=== PATIENT | female | born 1955 | race Caucasian/White ===

== ENCOUNTER → 2016-11-16 | Outpatient (CLI) | payer MEDICAID, OTHER | LOC: CIMAGING 11:04 | DX: Z12.31 Encounter for screening mammogram for malignant neoplasm of breast (principal) | CPT/HCPCS: G0202 ==

== ENCOUNTER 2017-01-31 01:25 | Inpatient (IN) | payer MEDICAID ==
--- NOTE | 2017-01-31 01:53 | EDPHY ---
H & P Stated Complaint: abd pain HPI/ROS: Chief Complaint: Abdominal pain, nausea HPI: 61-year-old woman with a history of prior small-bowel obstruction secondary to multiple abdominal surgeries started having abdominal pain about 2 hours ago consistent with prior bowel obstructions. She states she has significant pain primarily in the left side feeling bloated and is having nausea. No diarrhea. Last bowel movement was 2 E days ago which is unusual for her. No fevers or chills. No chest pain shortness of breath. Pain is about a 8/10. It is constant. There is no aggravating or alleviating factors. ROS: 10 point Review of Systems is negative except as noted in the HPI. PMH: Hypertension, Hyperlipidemia, Peripheral neuropathy Anxiety Social History: No smoking, no alcohol, no recreational drug use Family History: non-contributory Physical Exam: Gen: Awake, Alert, No Distress HEENT: Nose: no rhinorrhea Eyes: PERRLA, EOMI Mouth: Moist mucosa Neck: Supple, no JVD Chest: nontender, lungs clear to auscultation Heart: S1, S2 normal, no murmur Abd: Distended, diffuse tenderness, worse on the left, voluntary guarding Back: no CVA tenderness, no midline tenderness Ext: no edema, non-tender Skin: no rash Neuro: CN II-XII intact, Sensation grossly intact, Strength 5/5 in bilateral upper and lower extremities - Personal History Current Tetanus/Diphtheria Vaccine: Unsure Current Tetanus Diphtheria and Acellular Pertussis (TDAP): Unsure - Medical/Surgical History Hx Asthma: No Hx Chronic Respiratory Disease: No Hx Diabetes: No Hx Cardiac Disease: Yes Hx Renal Disease: No Hx Cirrhosis: No Hx Alcoholism: No Hx HIV/AIDS: No Hx Splenectomy or Spleen Trauma: No Other PMH: Thyroid. cholesterol. Hyst with nicked bowel resulting in colostomy and further surgeries. tonsils. appy - Social History Smoking Status: Never smoked Constitutional: Initial Vital Signs Temperature (C) 37 C 01/31/17 01:35 Heart Rate 75 01/31/17 01:35 Respiratory Rate 18 01/31/17 01:35 Blood Pressure 73/46 L 01/31/17 01:35 O2 Sat (%) 94 01/31/17 01:35 O2 Delivery Mode Room Air Allergies/Adverse Reactions: oxycodone Allergy (Verified 01/31/17 01:32) Vomiting Home Medications: Medication Instructions Recorded Atenolol [Tenormin 50 mg (*)] 50 mg PO BID 02/03/16 Estradiol [Estrace Vaginal (*)] 1 gm VG HS PRN 02/03/16 Gabapentin [Neurontin 300 MG (*)] 300 mg PO TID 02/03/16 Levothyroxine [Synthroid 75 mcg 75 mcg PO DAILY06 02/03/16 (*)] Lisinopril [Zestril 20 mg (*)] 20 mg PO BID 02/03/16 Multivitamins [Multivitamin (*)] 1 each PO DAILY 02/03/16 [employer] Fatty Acids [Fish Oil 1000 1,000 mg PO DAILY 02/03/16 mg (*)] Simvastatin 40 mg PO DAILY@1800 02/03/16 Thiamine HCl 100 mg PO DAILY 02/03/16 Atenolol [Tenormin 50 mg (*)] 50 mg PO BID #0 tab 02/05/16 Gabapentin [Neurontin 300 MG (*)] 300 mg PO TID #0 cap 02/05/16 Medical Decision Making - Diagnostics Imaging Results: CT scan interpreted by Dr. Fernando, confirms small-bowel obstruction of moderate to severe, transition in the left lower quadrant. Imaging: Discussed imaging studies w/ transportation officer Radiologist ED Course/Re-evaluation: Patient is a confirmed small-bowel obstruction CT scan. I have discussed with Dr. Herron, general surgery. He will admit to his service for further care. - Data Points Laboratory Results: Laboratory Results 01/31/17 01:45 01/31/17 01:45 01/31/17 01/31/17 01:45 01:45 WBC 10.44 10^3/uL H 10^3/uL (3.80-9.50) RBC 4.35 10^6/uL 10^6/uL (4.18-5.33) Hgb 13.6 g/dL g/dL (12.6-16.3) Hct 41.6 % % (38.0-47.0) MCV 95.6 fL fL (81.5-99.8) MCH 31.3 pg pg (27.9-34.1) MCHC 32.7 g/dL g/dL (32.4-36.7) RDW 13.7 % % (11.5-15.2) Plt Count 230 10^3/uL 10^3/uL (150-400) MPV 10.3 fL fL (8.7-11.7) Neut % (Auto) 61.4 % % (39.3-74.2) Lymph % (Auto) 29.1 % % (15.0-45.0) [place] % (Auto) 7.4 % % (4.5-13.0) Eos % (Auto) 0.9 % % (0.6-7.6) Baso % (Auto) 0.7 % % (0.3-1.7) Nucleat RBC Rel Count 0.0 % % (0.0-0.2) Absolute Neuts (auto) 6.42 10^3/uL 10^3/uL (1.70-6.50) Absolute Lymphs (auto) 3.04 10^3/uL H 10^3/uL (1.00-3.00) Absolute Monos (auto) 0.77 10^3/uL 10^3/uL (0.30-0.80) Absolute Eos (auto) 0.09 10^3/uL 10^3/uL (0.03-0.40) Absolute Basos (auto) 0.07 10^3/uL 10^3/uL (0.02-0.10) Absolute Nucleated RBC 0.00 10^3/uL 10^3/uL (0-0.01) Immature Gran % 0.5 % % (0.0-1.1) Immature Gran # 0.05 10^3/uL 10^3/uL (0.00-0.10) Sodium 143 mEq/L mEq/L (134-144) Potassium 3.3 mEq/L L mEq/L (3.5-5.2) Chloride 103 mEq/L mEq/L (97-110) Carbon Dioxide 24 mEq/l mEq/l (22-31) Anion Gap 16 mEq/L mEq/L (8-16) BUN 32 mg/dL H mg/dL (7-23) Creatinine 1.4 mg/dL H mg/dL (0.6-1.0) Estimated GFR 38 Glucose 99 mg/dL mg/dL (70-100) Calcium 9.6 mg/dL mg/dL (8.5-10.4) Total Bilirubin 0.6 mg/dL mg/dL (0.1-1.4) Conjugated Bilirubin 0.4 mg/dL mg/dL (0.0-0.5) Unconjugated Bilirubin 0.2 mg/dL mg/dL (0.0-1.1) AST 48 IU/L H IU/L (14-46) ALT 42 IU/L IU/L (9-52) Alkaline Phosphatase 60 IU/L IU/L (38-126) Total Protein 7.0 g/dL g/dL (6.3-8.2) Albumin 4.3 g/dL g/dL (3.5-5.0) Lipase 307.0 IU/L H IU/L (23-300) Medications Given: Discontinued Medications Hydromorphone HCl (Dilaudid) 0.5 mg IVP EDNOW ONE Stop: 01/31/17 01:57 Last Admin: 01/31/17 02:10 Dose: 0.5 mg Hydromorphone HCl (Dilaudid) 0.5 mg IVP EDNOW ONE Stop: 01/31/17 03:02 Last Admin: 01/31/17 03:16 Dose: 0.5 mg Sodium Chloride (Ns) 1,000 mls @ 0 mls/hr IV ONCE ONE PRN Reason: Wide Open Stop: 01/31/17 01:56 Last Admin: 01/31/17 02:10 Dose: 1,000 mls Ondansetron HCl (Zofran) 4 mg IVP EDNOW ONE Stop: 01/31/17 01:56 Last Admin: 01/31/17 02:10 Dose: 4 mg Departure - Departure Disposition: [facility] Inpatient Acute Clinical Impression: SBO (small bowel obstruction) Condition: Fair Referrals: Arminda Vanegas MD [Primary Care Provider] - As per Instructions
[2017-01-31] MEDS ORDERED: ONDANSETRON 4 MG/2 ML VIAL ONE (01:54)
[2017-01-31] MEDS ORDERED: ONDANSETRON 4 MG/2 ML VIAL IVP ONE (01:55)
[2017-01-31] MEDS ORDERED: HYDROmorphONE/DILAUDID 1 MG/ML SYR ONE (01:55)
[2017-01-31] MEDS ORDERED: NS 1,000 ML IV ONE (01:55)
[2017-01-31] MEDS ORDERED: HYDROmorphONE/DILAUDID 1 MG/ML SYR IVP ONE ×2 (01:56→03:01)
[2017-01-31] MEDS ORDERED: IOPAMIDOL (ISOVUE-300) 100 ML BTL ONE (01:59)
[2017-01-31 02:00] LABS: % IMMATURE GRANULYOCYTES 0.5 % (0.0-1.1); ABSOLUTE IMMATURE GRANULOCYTES 0.05 10^3/uL (0.00-0.10); ADD DIFF? NO; ADD MORPH? NO; ADD SCAN? NO; ATYPICAL LYMPHOCYTE FLAG 0 (0-99); FRAGMENT RBC FLAG 0 (0-99); HEMATOCRIT 41.6 % (38.0-47.0); HEMOGLOBIN 13.6 g/dL (12.6-16.3); LEFT SHIFT FLG 0 (0-99); LIPEMIA HEMOLYSIS FLAG 80 (0-99); MEAN CELL HEMOGLOBIN 31.3 pg (27.9-34.1); MEAN CELL HEMOGLOBIN CONCENTR. 32.7 g/dL (32.4-36.7); MEAN CELL VOLUME 95.6 fL (81.5-99.8); MEAN PLATELET VOLUME 10.3 fL (8.7-11.7); PLATELET CLUMPS FLAG 0 (0-99); PLATELET COUNT 230 10^3/uL (150-400); RED BLOOD CELL COUNT 4.35 10^6/uL (4.18-5.33); RED CELL DISTRIBUTION WIDTH 13.7 % (11.5-15.2)
[2017-01-31 02:07] LABS: ALANINE AMINOTRANSFERASE 42 IU/L (9-52); ALBUMIN 4.3 g/dL (3.5-5.0); ALKALINE PHOSPHATASE 60 IU/L (38-126); ANION GAP 16 mEq/L (8-16); ASPARTATE AMINOTRANSFERASE 48 IU/L (14-46); BILIRUBIN,TOTAL 0.6 mg/dL (0.1-1.4); BILIRUBIN-CONJUGATED 0.4 mg/dL (0.0-0.5); BILIRUBIN-UNCONJUGATED 0.2 mg/dL (0.0-1.1); CALCIUM 9.6 mg/dL (8.5-10.4); CARBON DIOXIDE 24 mEq/l (22-31); CHLORIDE 103 mEq/L (97-110); CREATININE 1.4 mg/dL (0.6-1.0); GLOMERULAR FILTRATION RATE 38; GLUCOSE 99 mg/dL (70-100); POTASSIUM 3.3 mEq/L (3.5-5.2); SODIUM 143 mEq/L (134-144)
[2017-01-31] MEDS ORDERED: LIDOCAINE 2% JELLY 5 ML TUBE ONE (03:19)
[2017-01-31] MEDS ORDERED: ONDANSETRON DISINTEGRATING 4 MG TAB PO PRN (04:12)
[2017-01-31] MEDS ORDERED: LR 1,000 ML IV SCH (04:30)
--- NOTE | 2017-01-31 04:48 | GHP ---
[f rep st] HISTORY AND PHYSICAL DATE OF ADMISSION: 01/31/2017 CHIEF COMPLAINT: Abdominal pain. Absence of flatus. PRESENT ILLNESS: A 61-year-old female with a long surgical history and multiple previous small batsheva l obstructions. She had a hysterectomy in the past, and then developed an ovarian cyst. This was a pproached in approximately 2004. Apparently, there was a bowel injury, which led to multiple proced ures including a temporary colostomy, several attempts at colostomy reversal, which failed, ultimate ly succeeding, but required multiple hospitalizations, multiple operations over a long period. The majority of these reparative surgeries were done by Dr. Jus Crowell. Since that time, she has had several small bowel obstructions, which resolved with NG suction. She currently has a CT scan showing a small bowel obstruction with a transition zone in the left lower q uadrant. She has not had a stool for 2 days. ALLERGIES: None. CURRENT MEDICATIONS: Atenolol, lisinopril, gabapentin. SOCIAL HISTORY: Nonsmoker, drinks vodka on a daily basis. , [place]. PHYSICAL EXAM: GENERAL: Pleasant, moderately obese female in minimal distress. An NG tube has jus t been placed, although nothing is coming out of it. A KUB will be obtained to document placement. HEENT: GILMA, EOMI, sclerae nonicteric. Pharynx clear. NECK: Supple without adenopathy. LUNGS: Clear. HEART: Normal S1, S2 without murmur. ABDOMEN: Soft. No guarding. No masses. A small h ernia is suggested in the anterior midline just above the umbilicus. This is noted on CT scan as we ll. There is only notice of coughing in a focused exam. LABORATORY EXAMS: Include a white blood count of 10.4, potassium 3.3, lipase 307. ASSESSMENT AND PLAN: Patient with complicated surgical history, multiple midline operations, a smal l hernia noted on CT, although does not seem to be the site of obstruction. PLAN: NG suction, bowel rest, evaluation for progress. Hopefully she will not need a laparotomy du ring this admission, it is certainly possible. /[id number]/MODL
[2017-01-31] MEDS: HEPARIN 5,000 UNIT/0.5 ML SYR SC SCH ×3 (05:47→20:19)
--- NOTE | 2017-01-31 13:10 | SOAPPROG ---
SOAP Progress Note Assessment/Plan: Assessment:feeling much better. flatus and bm earlier today. no further crampy pain. NG thin gastric. PSBO - clinically improved. will repeat KUB today. Plan: 01/31/17 13:08 Objective: Vital Signs Temp Pulse Resp BP Pulse Ox 36.2 C 73 16 156/95 H 94 01/31/17 12:00 01/31/17 12:00 01/31/17 12:00 01/31/17 12:00 01/31/17 12:00 01/30/17 01/31/17 02/01/17 05:59 05:59 05:59 Intake Total 1200 Output Total 100 450 Balance 1100 -450 ICD10 Worksheet Patient Problems: Problems Problem Status Onset SBO (small bowel obstruction) Acute
[2017-02-01] MEDS: HEPARIN 5,000 UNIT/0.5 ML SYR SC SCH ×2 (06:46→14:33)
[2017-02-01 07:58] VITALS: RESP 16; TEMP 98.5
--- NOTE | 2017-02-01 09:01 | SOAPPROG ---
SOAP Progress Note Assessment/Plan: Assessment: Patient resting in bed- just waking up. Denies BM or flatus so far this am. Pain improved. NG thin. VS 140-150/90's, HR 80s, 91% 2L NC, afebrile. No new labs today. A&O x 3, abd soft, mild tenderness LLQ- improving. A/P: PSBO- improving. NG in place, on clears. If passing gas/ BM this am will plan to clamp NG tube (d/w RN). KUB pending. Plan: 02/01/17 08:59 Objective: Vital Signs Temp Pulse Resp BP Pulse Ox 36.9 C 81 16 157/93 H 91 L 02/01/17 07:58 02/01/17 07:58 02/01/17 07:58 02/01/17 07:58 02/01/17 07:58 01/31/17 02/01/17 02/02/17 05:59 05:59 05:59 Intake Total 1200 300 Output Total 100 1650 Balance 1100 -1350 ICD10 Worksheet Patient Problems: Problems Problem Status Onset SBO (small bowel obstruction) Acute
--- NOTE | 2017-02-01 15:41 | SOAPPROG ---
SOAP Progress Note Assessment/Plan: Assessment:feeling good. flatus and bm today. no further crampy pain. KUB pending. AVSS. abd soft, nontender. NG thin gastric. PSBO - clinically improved. assuming KUB normal, will DC tube, adv diet and plan for DC to home today. Plan: 01/31/17 13:08 02/01/17 15:40 Objective: Vital Signs Temp Pulse Resp BP Pulse Ox 36.9 C 84 16 158/94 H 89 L 02/01/17 11:50 02/01/17 11:50 02/01/17 11:50 02/01/17 11:50 02/01/17 11:50 01/31/17 02/01/17 02/02/17 05:59 05:59 05:59 Intake Total 1200 300 450 Output Total 100 1650 801 Balance 4941 -7899 -356 ICD10 Worksheet Patient Problems: Problems Problem Status Onset SBO (small bowel obstruction) Acute
[2017-02-01 15:51] VITALS: BP 166/103; PULSE 87; O2SAT 93
--- NOTE | 2017-02-02 11:44 | GDS ---
[f rep st] DISCHARGE SUMMARY REASON FOR ADMISSION: Partial small-bowel obstruction. HISTORY OF PRESENT ILLNESS: The patient is a 61-year-old female who presented to [facility] emergency room with complaints of abdominal pain and not passing gas. She has a significant abdominal surgical hi story starting with a hysterectomy. Then in 2004, had an ovarian cyst with subsequent bowel injury and subsequent multiple procedures including a temporary colostomy, several colostomy reversal attem pts with ultimate success. She has had prior history of small-bowel obstructions; all have been res olved with NG tube placement. HOSPITAL COURSE: On this occasion, she presented to the emergency room. CT scan confirmed small-heidi wel obstruction and the patient had no stool for 2 days. She was subsequently admitted to the [facility] on January 31, 2017, for further management. The patient had an NG tube placed. She was placed on bowel rest. By that evening, the patient had passed gas and had had a bowel movement and was clinic ally improving. She was watched for an additional night and, as of yesterday, again, was passing ga s and having bowel movements, and her crampy had improved. A KUB showed no evidence of bowel dilata tion. Her NG tube was subsequently discontinued. The patient's diet was advanced, and she tolerate d this. She was subsequently discharged home yesterday evening. DISCHARGE MEDICATIONS: Include multivitamin daily, lisinopril 20 mg twice daily, Levothyroxine 75 m cg daily, gabapentin 300 mg daily, fish oil 1000 mg daily, estradiol 1 g vaginally at night as neede d, atenolol 50 mg twice daily, herbal supplements daily, vitamin D3 1000 units daily, citalopram 40 mg daily, Lipitor 20 mg daily, gabapentin 900 mg at night. DISCHARGE INSTRUCTIONS: The patient had no restrictions on discharge, and she was to follow up as n [place] with Dr. Crowell. Full written and verbal discharge instructions were reviewed with the patient a nd, again, will plan to see her back as needed. /[id number]/MODL
== END 2017-02-01 18:05 | disposition home or self-care (01) | DRG 390 ==
LOC: F3N 05:10
PROVIDERS: ADMIT Surgery; ATTEND Surgery
PROC: 0D9670Z Drainage of Stomach with Drainage Device, Via Natural or Artificial Opening (ICD-10-PCS; principal; 2017-01-31)
DX: K56.60 Unspecified intestinal obstruction (principal); I10 Essential (primary) hypertension; E78.5 Hyperlipidemia, unspecified
CPT/HCPCS: 92526-GN; 92610-GN; 96374; 97161-GP; J1170; J2405; Q9967

== ENCOUNTER 2018-05-21 03:00 | Inpatient (IN) | payer OTHER ==
[2018-05-21] MEDS ORDERED: NS 1,000 ML IV ONE (03:08)
[2018-05-21 03:43] LABS: PLATELET COUNT 193 10^3/uL (150-400)
--- NOTE | 2018-05-21 03:56 | EDPHY ---
H & P Stated Complaint: ABD PAIN Time Seen by Provider: 05/21/18 03:56 HPI/ROS: HPI CHIEF COMPLAINT: Abdominal abdominal pain, abdominal distension, nausea HISTORY OF PRESENT ILLNESS: 63-year-old female, history of SBO, additionally multiple abdominal surgeries including colostomy, ostomy reversal, bowel resection, gallbladder removal, presents emergency room with abdominal pain and abdominal distension since last night. Patient reports that around 10:00 p.m. Last night she started developing abdominal distension nausea and worsening abdominal pain. Feels similar to previous SBO. Denies any chest pain shortness of breath. Denies fever. Has had some nausea but no vomiting. Increasing abdominal pain and distension. Past Medical History: Hypertension Past Surgical History: History of recurrent SBO, laparotomy, colostomy, gallbladder removal Social History: Denies drugs alcohol tobacco. Family History: Noncontributory ROS REVIEW OF SYSTEMS: 10 Systems were reviewed and negative with the exception of the elements mentioned in the history of present illness. Exam Constitutional nontoxic, triage nursing summary reviewed, vital signs reviewed , awake/alert. Eyes normal conjunctivae and sclera, EOMI, PERRLA. HENT normal inspection, atraumatic, moist mucus membranes, no epistaxis, neck supple/ no meningismus, no raccoon eyes. Respiratory clear to auscultation bilaterally, normal breath sounds, no respiratory distress, no wheezing. Cardiovascular rate normal, regular rhythm, no murmur, no edema, distal pulses normal. Gastrointestinal distended abdomen, mildly tender palpation, not peritoneal. Genitourinary no CVA tenderness. Musculoskeletal no midline vertebral tenderness, full range of motion, no calf swelling, no tenderness of extremities, no meningismus, good pulses, neurovascularly intact. Skin pink, warm, & dry, no rash, skin atraumatic. Neurologic awake, alert and oriented x 3, AAOx3, moves all 4 extremities equally, motor intact, sensory intact, CN II-XII intact, normal cerebellar, normal vision, normal speech. Psychiatric normal mood/affect. Heme/Lymph/Immune no lymphadenopathy. Differential diagnosis includes but is not limited to and in no particular order : Bowel obstruction, appendicitis, gallbladder disease, diverticulitis, colitis , enteritis, perforated viscus, gastritis, GERD, esophagitis, urinary tract infection, pyelonephritis, kidney stones Medical Decision Making: Plan for this patient IV establishment IV fluid bolus , IV Dilaudid for pain control IV Phenergan for nausea, lactic acid, electrolytes, CT scan abdomen pelvis with IV contrast. Re-evaluation: CT scan abdomen pelvis with IV contrast called to me by Dr. Judy Dowling. Shows SBO. 0601: Spoke with surgery Dr. Baeza. Agrees to admit the patient for SBO. Source: Patient - Personal History Current Tetanus Diphtheria and Acellular Pertussis (TDAP): Unsure - Medical/Surgical History Hx Asthma: No Hx Chronic Respiratory Disease: No Hx Diabetes: No Hx Cardiac Disease: Yes Hx Renal Disease: No Hx Cirrhosis: No Hx Alcoholism: No Hx HIV/AIDS: No Hx Splenectomy or Spleen Trauma: No Other PMH: hypothyroid, high cholesterol,. Hyst with nicked bowel resulting in colostomy and further surgeries, tonsilectomy, appy - Social History Smoking Status: Former smoker Constitutional: Initial Vital Signs Temperature (C) 36.6 C 05/21/18 03:07 Heart Rate 72 05/21/18 03:07 Respiratory Rate 18 05/21/18 03:07 Blood Pressure 143/89 H 05/21/18 03:07 O2 Sat (%) 92 05/21/18 03:07 O2 Delivery Mode Room Air O2 (L/minute) 2 Allergies/Adverse Reactions: acetaminophen [From Percocet] Allergy (Verified 05/21/18 03:07) Vomiting oxycodone [From Percocet] Allergy (Verified 05/21/18 03:07) Vomiting Home Medications: Medication Instructions Recorded Atenolol [Tenormin 25 mg (*)] 25 mg PO BID 05/21/18 Atorvastatin Calcium [Lipitor 20 20 mg PO HS 05/21/18 mg (*)] Citalopram Hydrobromide 40 mg PO DAILY 05/21/18 [Citalopram HBr] Estradiol [Estrace Vaginal (*)] 1 marie VG PRN PRN 05/21/18 Gabapentin [Neurontin 300 MG (*)] 1,200 mg PO HS 05/21/18 Gabapentin [Neurontin 300 MG (*)] 600 mg PO DAILY 05/21/18 Herbals/Supplements -Info Only 1 ea PO DAILY 05/21/18 Ibuprofen [Motrin (*)] 200 - 400 mg PO Q6H PRN 05/21/18 Levothyroxine [Synthroid 50 mcg 50 mcg PO DAILY06 05/21/18 (*)] Lisinopril [Zestril 20 mg (*)] 20 mg PO BID 05/21/18 Multivitamins [Multivitamin (*)] 1 each PO DAILY 05/21/18 amLODIPine BESYLATE [Norvasc 5 mg 5 mg PO DAILY 05/21/18 (*)] Medical Decision Making - Data Points Laboratory Results: Laboratory Results 05/21/18 03:25 05/21/18 03:25 Medications Given: Amlodipine Besylate (Norvasc) 5 mg PO DAILY TESS Stop: 11/18/18 10:29 Last Admin: 05/22/18 11:05 Dose: 5 mg Atenolol (Tenormin) 25 mg PO BID TESS Stop: 11/18/18 10:14 Last Admin: 05/22/18 21:16 Dose: 25 mg Atorvastatin Calcium (Lipitor) 20 mg PO HS TESS Stop: 11/18/18 20:59 Last Admin: 05/22/18 21:16 Dose: 20 mg Gabapentin (Neurontin) 1,200 mg PO HS TESS Stop: 11/18/18 20:59 Last Admin: 05/22/18 21:16 Dose: 1,200 mg Sodium Chloride (Ns) 1,000 mls @ 125 mls/hr IV CONT TESS Stop: 11/17/18 09:29 Last Admin: 05/22/18 12:40 Dose: 1,000 mls Levothyroxine Sodium (Synthroid) 50 mcg PO DAILY06 TESS Stop: 11/18/18 10:14 Last Admin: 05/22/18 11:06 Dose: 50 mcg Lisinopril (Zestril) 20 mg PO BID TESS Stop: 11/18/18 20:59 Last Admin: 05/22/18 21:16 Dose: 20 mg Ondansetron HCl (Zofran) 4 mg IVP Q4HRS PRN PRN Reason: Nausea/Vomiting, Can't Take PO Stop: 11/18/18 10:06 Last Admin: 05/22/18 20:30 Dose: 4 mg Throat Lozenges (Cepacol Lozenge) 1 ea PO PRN PRN PRN Reason: Sore Throat Stop: 11/17/18 08:27 Last Admin: 05/22/18 00:53 Dose: 1 ea Discontinued Medications Benzocaine (Hurricaine Adams) 1 each MM EDNOW ONE Stop: 05/21/18 05:54 Last Admin: 05/21/18 05:55 Dose: 1 each Hydromorphone HCl (Dilaudid) 1 mg IVP EDNOW ONE Stop: 05/21/18 04:03 Last Admin: 05/21/18 04:12 Dose: 1 mg Hydromorphone HCl (Dilaudid) 1 mg IVP EDNOW ONE Stop: 05/21/18 07:33 Last Admin: 05/21/18 07:36 Dose: 1 mg Sodium Chloride (Ns) 1,000 mls @ 0 mls/hr IV EDNOW ONE; Wide Open PRN Reason: Protocol Stop: 05/21/18 03:09 Last Admin: 05/21/18 03:18 Dose: 1,000 mls Lidocaine (Uroject Lidocaine 2% Jelly) 20 ml UR EDNOW ONE Stop: 05/21/18 05:54 Last Admin: 05/21/18 05:55 Dose: 20 ml Promethazine HCl (Phenergan) 6.25 mg IVP ONCE ONE Stop: 05/21/18 04:03 Last Admin: 05/21/18 04:12 Dose: 6.25 mg Departure - Departure Disposition: [facility] Inpatient Acute Clinical Impression: SBO (small bowel obstruction) Condition: Fair
[2018-05-21] MEDS ORDERED: PROMETHAZINE HCL 25 MG/ML INJ IVP ONE (04:02)
[2018-05-21] MEDS ORDERED: HYDROmorphONE/DILAUDID 2 MG/ML INJ IVP ONE (04:02)
[2018-05-21 04:07] LABS: INR 1.04 (0.83-1.16); PROTIME(PATIENT) 13.8 SEC (12.0-15.0)
[2018-05-21] MEDS ORDERED: IOPAMIDOL (ISOVUE-300) 100 ML BTL ONE (04:08)
[2018-05-21] MEDS ORDERED: BENZOCAINE UNIT DOSE SPRAY HURRICAINE MM ONE ×2 (05:48→05:53)
[2018-05-21] MEDS ORDERED: LIDOCAINE 2% JELLY 20 ML (UROJECT) UR ONE (05:53)
[2018-05-21] MEDS ORDERED: HYDROmorphONE/DILAUDID 1 MG/ML INJ IVP ONE (07:32)
[2018-05-21] MEDS ORDERED: CEPACOL LOZENGE PO PRN (08:28)
[2018-05-21] MEDS ORDERED: HYDROmorphONE/DILAUDID 1 MG/ML INJ IVP PRN (08:28)
--- NOTE | 2018-05-21 09:54 | PDGENHP ---
History and Physical - Chief Complaint Abdominal pain - History of Present Illness This is a 63-year-old woman known to our service for previous history of left colectomy for iatrogenic injury with intervening colostomy. She has had several bowel obstructions over the last [address] scan similar to the one from today. They show transition point in the left pelvis consistent with partial small-bowel obstruction. She also has 2 ventral hernias which are nonobstructive in the upper aspect of the abdomen. The patient complains of crampy abdominal pain starting late last night. She has denied flatus or bowel movement today. NG tube was placed in the emergency room. Minimal aspirate was found. History Information - Allergies/Home Medication List Allergies/Adverse Reactions: acetaminophen [From Percocet] Allergy (Verified 05/21/18 03:07) Vomiting oxycodone [From Percocet] Allergy (Verified 05/21/18 03:07) Vomiting Home Medications: Atenolol [Tenormin 25 mg (*)] 25 mg PO BID 05/21/18 [Last Taken 05/20/18] Atorvastatin Calcium [Lipitor 20 mg (*)] 20 mg PO HS 05/21/18 [Last Taken ] Citalopram Hydrobromide [Citalopram HBr] 40 mg PO DAILY 05/21/18 [Last Taken 10/06] Estradiol [Estrace Vaginal (*)] 1 marie VG PRN PRN 05/21/18 [Last Taken Unknown] Gabapentin [Neurontin 300 MG (*)] 1,200 mg PO HS 05/21/18 [Last Taken 05/20/18] Gabapentin [Neurontin 300 MG (*)] 600 mg PO DAILY 05/21/18 [Last Taken 05/20/18] Herbals/Supplements -Info Only 1 ea PO DAILY 05/21/18 [Last Taken Unknown] Ibuprofen [Motrin (*)] 200 - 400 mg PO Q6H PRN 05/21/18 [Last Taken Unknown] Levothyroxine [Synthroid 50 mcg (*)] 50 mcg PO DAILY06 05/21/18 [Last Taken 10/06] Lisinopril [Zestril 20 mg (*)] 20 mg PO BID 05/21/18 [Last Taken 05/20/18] Multivitamins [Multivitamin (*)] 1 each PO DAILY 05/21/18 [Last Taken 05/20/18] amLODIPine BESYLATE [Norvasc 5 mg (*)] 5 mg PO DAILY 05/21/18 [Last Taken ] I have personally reviewed and updated: family history, medical history, social history, surgical history - Past Medical History hypertension, hyperlipidemia - Surgical History Reports: hysterectomy Additional surgical history: Multiple colon surgeries with intervening colostomy - Family History Positive for: non-pertinent - Social History Smoking Status: Former smoker Alcohol Use: Occasionally Drug Use: None Review of Systems Review of Systems: ROS: 10pt was reviewed & negative except for what was stated in HPI & below Gastrointestinal: Reports: abdominal pain. Denies: vomitting, rectal pain, rectal bleeding Physical Exam Physical Exam: Alert oriented to person place and time Sclerae anicteric Oropharynx slightly dry NG tube in place patent and oscillating Lungs clear bilaterally Heart regular rate and rhythm no murmurs Abdomen soft nontender nondistended 2 small hernias palpable superiorly in her abdomen. Well-healed midline surgical scars and old colostomy site left lower quadrant Extremities without edema Normal skin turgor and tone Normal affect No lymphadenopathy cervical supraclavicular or inguinal Temp Pulse Resp BP Pulse Ox 36.9 C 78 16 127/80 H 91 L 05/21/18 08:59 05/21/18 08:59 05/21/18 08:59 05/21/18 08:59 05/21/18 08:59 O2 (L/minute) 2 Lab Data & Imaging Review 05/21/18 03:25 05/21/18 03:25 WBC 9.59 10^3/uL (3.80-9.50) H 05/21/18 03:25 RBC 4.12 10^6/uL (4.18-5.33) L 05/21/18 03:25 Hgb 13.5 g/dL (12.6-16.3) 05/21/18 03:25 Hct 40.4 % (38.0-47.0) 05/21/18 03:25 MCV 98.1 fL (81.5-99.8) 05/21/18 03:25 MCH 32.8 pg (27.9-34.1) 05/21/18 03:25 MCHC 33.4 g/dL (32.4-36.7) 05/21/18 03:25 RDW 14.6 % (11.5-15.2) 05/21/18 03:25 Plt Count 193 10^3/uL (150-400) 05/21/18 03:25 MPV 10.0 fL (8.7-11.7) 05/21/18 03:25 Neut % (Auto) 78.2 % (39.3-74.2) H 05/21/18 03:25 Lymph % (Auto) 13.5 % (15.0-45.0) L 05/21/18 03:25 [place] % (Auto) 6.6 % (4.5-13.0) 05/21/18 03:25 Eos % (Auto) 0.8 % (0.6-7.6) 05/21/18 03:25 Baso % (Auto) 0.6 % (0.3-1.7) 05/21/18 03:25 Nucleat RBC Rel Count 0.0 % (0.0-0.2) 05/21/18 03:25 Absolute Neuts (auto) 7.50 10^3/uL (1.70-6.50) H 05/21/18 03:25 Absolute Lymphs (auto) 1.29 10^3/uL (1.00-3.00) 05/21/18 03:25 Absolute Monos (auto) 0.63 10^3/uL (0.30-0.80) 05/21/18 03:25 Absolute Eos (auto) 0.08 10^3/uL (0.03-0.40) 05/21/18 03:25 Absolute Basos (auto) 0.06 10^3/uL (0.02-0.10) 05/21/18 03:25 Absolute Nucleated RBC 0.00 10^3/uL (0-0.01) 05/21/18 03:25 Immature Gran % 0.3 % (0.0-1.1) 05/21/18 03:25 Immature Gran # 0.03 10^3/uL (0.00-0.10) 05/21/18 03:25 PT 13.8 SEC (12.0-15.0) 05/21/18 03:40 INR 1.04 (0.83-1.16) 05/21/18 03:40 APTT 27.4 SEC (23.0-38.0) 05/21/18 03:40 VBG Lactic Acid 2.0 mmol/L (0.7-2.1) 05/21/18 04:50 Sodium 140 mEq/L (135-145) 05/21/18 03:25 Potassium 5.2 mEq/L (3.3-5.0) H 05/21/18 03:25 Chloride 104 mEq/L (97-110) 05/21/18 03:25 Carbon Dioxide 24 mEq/l (22-31) 05/21/18 03:25 Anion Gap 12 mEq/L (8-16) 05/21/18 03:25 BUN 16 mg/dL (7-23) 05/21/18 03:25 Creatinine 0.9 mg/dL (0.6-1.0) 05/21/18 03:25 Estimated GFR > 60 05/21/18 03:25 Glucose 107 mg/dL (70-100) H 05/21/18 03:25 Calcium 10.0 mg/dL (8.5-10.4) 05/21/18 03:25 Total Bilirubin 0.8 mg/dL (0.1-1.4) 05/21/18 03:25 Conjugated Bilirubin 0.4 mg/dL (0.0-0.5) 05/21/18 03:25 Unconjugated Bilirubin 0.4 mg/dL (0.0-1.1) 05/21/18 03:25 AST 70 IU/L (14-46) H 05/21/18 03:25 ALT 36 IU/L (9-52) 05/21/18 03:25 Alkaline Phosphatase 63 IU/L (38-126) 05/21/18 03:25 Total Protein 7.1 g/dL (6.3-8.2) 05/21/18 03:25 Albumin 4.3 g/dL (3.5-5.0) 05/21/18 03:25 Lipase 164 IU/L (23-300) 05/21/18 03:25 Specimen Hemolysis 147 05/21/18 03:25 Urine Color YELLOW 05/21/18 03:55 Urine Appearance HAZY 05/21/18 03:55 Urine pH 5.0 (5.0-7.5) 05/21/18 03:55 Ur Specific [place] 1.025 (1.002-1.030) 05/21/18 03:55 Urine Protein 1+ (NEGATIVE) H 05/21/18 03:55 Urine Ketones NEGATIVE (NEGATIVE) 05/21/18 03:55 Urine Blood NEGATIVE (NEGATIVE) 05/21/18 03:55 Urine Nitrate NEGATIVE (NEGATIVE) 05/21/18 03:55 Urine Bilirubin NEGATIVE (NEGATIVE) 05/21/18 03:55 Urine Urobilinogen NEGATIVE EU (0.2-1.0) 05/21/18 03:55 Ur Leukocyte Esterase 1+ (NEGATIVE) H 05/21/18 03:55 Urine RBC 1-3 /hpf (0-3) 05/21/18 03:55 Urine WBC 15-25 /hpf (0-3) H 05/21/18 03:55 Ur Epithelial Cells TRACE /lpf (NONE-1+) 05/21/18 03:55 Urine Bacteria 1+ /hpf (NONE SEEN) H 05/21/18 03:55 Hyaline Casts 1-5 /lpf (0-1) 05/21/18 03:55 Urine Mucus 1+ /lpf (NONE-1+) 05/21/18 03:55 Urine Glucose NEGATIVE (NEGATIVE) 05/21/18 03:55 Imaging Review: Personally reviewed CT scan of the abdomen and compared to that in 2017 and 2016. Consistent with left lower quadrant transition point with dilated small bowel. Previous colon resection is noted with small-bowel replacing the colon on the left side of the abdomen. No free fluid no free air. This was reviewed on [facility] PACS system with the patient. All questions were addressed. Assessment & Plan Assessment: SBO (small bowel obstruction) (Acute) Hypertension Hypothyroidism Sensitivity to Tylenol and oxycodone they cause nausea Plan: Clear liquid NG tube decompression Hyperkalemia with potassium of 5.2 repeat BMP in the morning Hydration with normal saline Serial exams. Likely non operative management of this problem. If she has continued bowel obstructions same spot she may require intervention. Hernia seen in upper midline are non obstructive and have not caused the patient any problems these can be managed without surgery at this time. Hold home medications for today. Restart in the morning.
--- NOTE | 2018-05-21 14:19 | PDMN ---
Medical Necessity Medical necessity: Pt meets inpt criteria per MD order and MCG M-210, Intestinal obstruction, 2 days. Pt presented w/worsening abd pain, nausea, and increasing distension, admitted w/acute SBO confirmed by abd CT scan, hyperkalemic w/K 5.2. Pt has hx of SBO, mult abd surgeries including laparotomy , colostomy, gallbladder removal. IVF hydration, NG tube decompression, recheck BMP in AM, med nec inpt monitoring/treatment.
--- NOTE | 2018-05-21 16:21 | ASMTCMCOM ---
CM Note CM Note Notes: Case Management Chart Review for Discharge Support: Melissa is a 63 year old female admitted via [facility] for abdominal pain and distension, to be followed for small bowel obstruction . Patient has history of small bowel obstruction, multiple abdominal surgeries including colostomy, ostomy reversal, bowel resection, gallbladder removal. CM met with patient and Erik. They shared they anticipate/hoping for discharge tomorrow, likely independent and Erik will transport and support patient needs at home. CM to follow. Current Discharge Plan: Likely home independent Tuesday05/22/18. Date Signed: 05/21/2018 04:21 PM Electronically Signed By:Danii Perez
[2018-05-22] MEDS: NS 1,000 ML IV SCH ×3 (00:53→12:40)
[2018-05-22] MEDS ORDERED: ESTRADIOL 42.5 GM CRTUBE VG PRN (10:08)
[2018-05-22] MEDS ORDERED: IBUPROFEN 200 MG TAB PO PRN (10:08)
--- NOTE | 2018-05-22 10:12 | SOAPPROG ---
SOAP Progress Note Assessment/Plan: Assessment/Plan: Tolerated clears yesterday OOB Passing gas/flatus Nauseated this am likely narcotics and NGT related RRR CTA Abs soft TD, NT no peritoneal signs No edema Chest rash - contact dermatitis D/C NGT Saline lock IV Adv diet Restart home meds d/c later today/tomorrow 05/22/18 10:10 Objective: Vital Signs Temp Pulse Resp BP Pulse Ox 37.4 C 82 16 127/102 H 91 L 05/22/18 07:29 05/22/18 07:29 05/22/18 07:29 05/22/18 07:29 05/22/18 07:29 Laboratory Results 05/22/18 05:47 05/21/18 05/22/18 05/23/18 05:59 05:59 05:59 Intake Total 400 Output Total 1000 Balance -600 PT 13.8 SEC (12.0-15.0) 05/21/18 03:40 INR 1.04 (0.83-1.16) 05/21/18 03:40 ICD10 Worksheet Patient Problems: Problems Problem Status Onset SBO (small bowel obstruction) Acute
[2018-05-22] MEDS: ATENOLOL 25 MG TAB PO SCH ×2 (11:04→21:16)
[2018-05-22] MEDS: amLODIPine BESYLATE 5 MG TAB PO SCH (11:05)
[2018-05-22] MEDS: LEVOTHYROXINE 50 MCG TAB PO SCH (11:06)
[2018-05-22] MEDS: ONDANSETRON 4 MG/2 ML VIAL IVP PRN ×3 (11:39→20:30)
[2018-05-22] MEDS ORDERED: ATORVASTATIN CALCIUM 20 MG TAB PO SCH (21:00)
[2018-05-22] MEDS ORDERED: GABAPENTIN 300 MG CAP PO SCH (21:00)
[2018-05-22] MEDS: LISINOPRIL 20 MG TAB PO SCH (21:16)
[2018-05-23] MEDS: LEVOTHYROXINE 50 MCG TAB PO SCH (05:38)
[2018-05-23] MEDS: NS 1,000 ML IV SCH (05:39)
[2018-05-23 07:42] VITALS: BP 133/86
[2018-05-23] MEDS ORDERED: GABAPENTIN 300 MG CAP PO SCH (09:00)
[2018-05-23] MEDS ORDERED: CITALOPRAM 20 MG TAB PO SCH (09:00)
[2018-05-23] MEDS: amLODIPine BESYLATE 5 MG TAB PO SCH (09:21)
[2018-05-23] MEDS: ATENOLOL 25 MG TAB PO SCH (09:22)
[2018-05-23] MEDS: LISINOPRIL 20 MG TAB PO SCH (09:23)
--- NOTE | 2018-05-25 18:37 | GDS ---
PRINCIPAL DIAGNOSIS: Small bowel obstruction. The patient has a history of multiple small bowel obs tructions over the last 3 years. She has had 1 each year requiring NG tube decompression. HISTORY OF PRESENT ILLNESS: A 63-year-old woman known for previous left hemicolectomy who came in wi th CT scan findings and clinical findings of small bowel obstruction. She was also seen to have 2 ve ntral hernias which were not obstructing in the upper abdomen. PAST MEDICAL HISTORY: Significant for hypertension and hyperlipidemia. HOME MEDICATIONS: Include atenolol, atorvastatin, citalopram, estradiol, gabapentin, ibuprofen, levo thyroxine, lisinopril, multivitamins, and herbal supplements. ALLERGIES: The patient has a sensitivity to acetaminophen and oxycodone from Percocet which she has sensitivity of vomiting. FAMILY HISTORY: Noncontributory. REVIEW OF SYSTEMS: Significant for her previous obstructions and current obstruction. HOSPITAL COURSE: The patient underwent NG tube decompression, started passing gas the day after admi ssion. She was hyperkalemic, which was treated with fluid hydration. Serial exams were performed. The patient was able to tolerate a diet. Her home medications were restarted, and she was discharged to home in her baseline cardiopulmonary status. She will follow up with the office p.r.n. All ques tions were addressed prior to discharge. /[id number]/MODL
== END 2018-05-23 14:29 | disposition home or self-care (01) | DRG 390 ==
LOC: F3E 08:37 → OBSVTOIN 13:59
PROVIDERS: ADMIT Surgery; ATTEND Surgery
DX: K56.609 Unspecified intestinal obstruction, unspecified as to partial versus complete obstruction (principal); K43.9 Ventral hernia without obstruction or gangrene; I10 Essential (primary) hypertension; E03.9 Hypothyroidism, unspecified; E87.5 Hyperkalemia
CPT/HCPCS: 96374; J1170; J2405; J2550; Q9967

== ENCOUNTER → 2018-08-16 | Outpatient (CLI) | payer OTHER | LOC: CIMAGING 13:12 | PROVIDERS: ATTEND Family Medicine | DX: R92.8 Other abnormal and inconclusive findings on diagnostic imaging of breast (principal); N63.23 Unspecified lump in the left breast, lower outer quadrant | CPT/HCPCS: 76641-PO ==

== ENCOUNTER → 2018-08-28 | Outpatient (CLI) | payer OTHER ==
[~2018-08-28] MED LIST: BUPIVACAINE 0.5% 30 ML SDV ONE; LIDOCAINE 1% 300 MG/30 ML SDV ONE; THROMBIN (BOVINE) 5,000 UNIT VIAL TP ONE
== END ==
LOC: FIMAGING 07:22
PROVIDERS: ATTEND Family Medicine
DX: D05.02 Lobular carcinoma in situ of left breast (principal)

== ENCOUNTER → 2018-10-03 | Outpatient (CLI) | payer OTHER ==
[~2018-10-03] MED LIST changes: -BUPIVACAINE 0.5% 30 ML SDV ONE; -THROMBIN (BOVINE) 5,000 UNIT VIAL TP ONE
== END ==
LOC: FIMAGING 07:14
PROVIDERS: ATTEND Surgery
PROC: 3E0W3HZ Introduction of Radioactive Substance into Lymphatics, Percutaneous Approach (ICD-10-PCS; principal; 2018-10-03)
DX: D05.12 Intraductal carcinoma in situ of left breast (principal)
CPT/HCPCS: 38792; A9520

== ENCOUNTER → 2018-11-01 | Outpatient (CLI) | payer OTHER | LOC: FIMAGING 13:28 | PROVIDERS: ATTEND Internal Medicine Hematology & Oncology | DX: Z13.820 Encounter for screening for osteoporosis (principal); E07.9 Disorder of thyroid, unspecified; Z78.0 Asymptomatic menopausal state; Z85.3 Personal history of malignant neoplasm of breast ==